=== PATIENT | male | born 1975 | race Two or more races ===

== ENCOUNTER → 2022-01-16 | Day surgery (SDC) | payer MEDICAID ==
[2022-01-12 11:23] LABS: Urine Bacteria NONE SEEN /hpf (None Seen); Urine Blood Negative /uL (Negative); Urine Mucus FEW (None Seen); Urine Specific Gravity 1.024 (1.001-1.035); Urine WBC 2 /hpf (0 - 3)
[2022-01-12 11:30] LABS: INR 1.05 (0.9-1.15); Partial Thromboplastin Time 31.4 sec (23.6-33.0)
[2022-01-12 11:34] LABS: Albumin 3.4 g/dL (3.4-5.0); Calcium 9.2 mg/dL (8.5-10.1); Potassium 3.9 mmol/L (3.5-5.1)
[2022-01-12 11:36] LABS: BUN/Creatinine Ratio 17.1
[2022-01-12 12:03] LABS: Basophils # (auto) 0 10 ^3/uL (0-0.2); Basophils % (auto) 0.4 % (0.0-2.0); Eosinophils # (auto) 0.1 10 ^3/uL (0-0.8); Eosinophils % (auto) 1.9 % (0.0-7.0); Hematocrit 41.1 % (41.0-53.0); Hemoglobin 14.2 g/dL (13.5-17.5); Lymphocytes # (auto) 1.4 10 ^3/uL (0.4-5.4); Mean Corpuscular Hemoglobin 29.4 pg (28.0-32.0); Mean Corpuscular Hgb Conc. 34.4 g/dL (32.0-36.0); Mean Corpuscular Volume 85.3 fL (80.0-100.0); Monocytes # (auto) 0.4 10 ^3/uL (0-1.3); Monocytes % (auto) 8.2 % (0.0-12.0); Neutrophils # (auto) 2.5 10 ^3/uL (1.6-8.6); Neutrophils % (auto) 57.5 % (37.0-80.0); Nucleated Red Blood Cells % 0.1 %; Red Blood Cells 4.82 10^6/uL (4.5-5.90); Red Cell Distribution Width 14.3 % (11.8-14.3); White Blood Cell 4.4 10^3/uL (4.4-10.8)
[2022-01-12 12:26] LABS: Bilirubin, Total 0.5 mg/dL (0.2-1.0); Total Protein 8.1 g/dL (6.4-8.2)
[~2022-01-16] VITALS: Ht 188 cm; Wt 133.8 kg
[~2022-01-16] MED LIST: BUPIVACAINE 0.5% P/F INJ 10 ML VIAL ONE; CEPH-322 PO; DOXAPRAM HCL 20 MG/ML 20ML VIAL INJ IV ONE; HYDR-4798 PO; HYDROmorphone HCL 2 MG/ML VL ONE; LIDOCAINE 1% HCL (LOCAL ANESTH.) INJ 20ML MDV ONE; METOCLOPRAMIDE HCL 5MG/ml INJ 2ml VIAL IV PRN; MIDAZOLAM HCL 2MG/2ML 2ml VIAL (1mg/ml) ONE; MORPHINE SULFATE 4 MG/ML SYR/VIAL IV PRN; ONDANSETRON HCL 4 MG/2 ML VIAL ONE; PERCOT PO; PROPOFOL 10 MG/ML 20 ML IV ONE; SODIUM CHLORIDE LOCK 10 ML ONE; SUCCINYLCHOLINE CHLORIDE 20 MG/ML 10ML VIAL IV ONE; ceFAZolin 1GM/50ML 100 ML IV ONE; fentaNYL CITRATE 100 MCG/2 ML VL ONE
[2022-01-16] MEDS: HYDROmorphone HCL 2 MG/ML VL IV PRN ×2 (10:40→10:50)
[2022-01-16 11:35] VITALS: BP 124/78
== END | disposition home or self-care (01) ==
LOC: SUR 06:10
PROVIDERS: ATTEND Student in an Organized Health Care Education/Training Program
DX: M20.12 Hallux valgus (acquired), left foot (principal); M20.42 Other hammer toe(s) (acquired), left foot; E66.9 Obesity, unspecified; Z68.37 Body mass index [BMI] 37.0-37.9, adult; Z20.822 Contact with and (suspected) exposure to COVID-19
CPT/HCPCS: 28298; 36415; 73620; 73630; 76000; 80053; 81001; 85025; 85610; 85730; C1713; C1769; J0330; J0690; J1170; J2001; J2250; J2405; J2704; J3010; J3490; U0003